=== PATIENT | male | born 1975 | race Caucasian/White ===

== ENCOUNTER 2017-02-02 08:07 | Emergency (ER) | payer OTHER ==
[~2017-02-02] VITALS: Ht 190.5 cm; Wt 113.0 kg
[2017-02-02] MEDS ORDERED: FAMOTIDINE 20 MG/2 ML ONE (08:46)
[2017-02-02] MEDS ORDERED: METOCLOPRAMIDE 5 MG/ML, 2ML ONE (08:46)
[2017-02-02] MEDS ORDERED: MAALOX/HYOSCYAMINE/LIDOCAINE 45 ML BTL ONE (08:46)
[2017-02-02] MEDS ORDERED: SODIUM CHLORIDE FLUSH 10ML SYR IVF ONE (09:00)
[2017-02-02] MEDS ORDERED: SODIUM CHLORIDE 0.9% 1,000ML IVBOLUS ONE (09:00)
[2017-02-02] MEDS ORDERED: MAALOX/HYOSCYAMINE/LIDOCAINE 45 ML BTL PO ONE (09:00)
[2017-02-02] MEDS ORDERED: METOCLOPRAMIDE 5 MG/ML, 2ML IVPush ONE (09:00)
[2017-02-02] MEDS ORDERED: FAMOTIDINE 20 MG/2 ML IVP ONE (09:00)
[2017-02-02 09:03] LABS: ASPARTATE AMINO TRANSFERASE 41 U/L (15-37); BLOOD UREA NITROGEN 6 mg/dL (7-18)
[2017-02-02 09:30] LABS: HEMOGLOBIN 16.2 g/dL (13.7-18.0); WHITE BLOOD COUNT 6.8 x10^3/uL (3.4-10)
[2017-02-02 10:11] VITALS: BP 137/92
== END 2017-02-02 10:47 | disposition home or self-care (01) ==
LOC: ED 10:21
DX: K29.00 Acute gastritis without bleeding (principal); A09 Infectious gastroenteritis and colitis, unspecified; E11.9 Type 2 diabetes mellitus without complications; E78.5 Hyperlipidemia, unspecified; I10 Essential (primary) hypertension
CPT/HCPCS: 36415; 74020; 80053; 81003; 83690; 85025; 86677; 93005; 96361; 96374; 96375; 99285; J2765; J7030; S0028

== ENCOUNTER 2017-02-28 15:47 | Observation (INO) | payer BC, OTHER ==
[~2017-02-28] VITALS: Ht 190.5 cm; Wt 101.7 kg
[2017-02-28] MEDS ORDERED: METO25TA91 PO (18:26)
[2017-02-28] MEDS ORDERED: GABA300C10 PO (18:26)
[2017-02-28] MEDS ORDERED: TRAZ100T15 PO (18:26)
[2017-02-28] MEDS ORDERED: VENL37.52 PO (18:26)
[2017-02-28] MEDS ORDERED: LISI40TA PO (18:26)
[2017-02-28] MEDS ORDERED: METF500T4 PO (18:26)
[2017-02-28] MEDS ORDERED: RISP0.5T24 PO (18:26)
[2017-02-28 18:59] LABS: BASOPHILS # (AUTO) 0.02 x10^3/uL (0-0.1); BASOPHILS % (AUTO) 0 % (0-1); EOSINOPHILS # (AUTO) 0.06 x10^3/uL (0-0.4); EOSINOPHILS % (AUTO) 1 % (1-7); LYMPHOCYTES # (AUTO) 1.02 x10^3/uL (1-3.4); LYMPHOCYTES % (AUTO) 13 % (22-44); MD NO; MEAN CORPUSCULAR HGB CONC 33.2 g/dL (33.2-36.2); MEAN CORPUSCULAR VOLUME 90.4 fL (81-97); MEAN PLATELET VOLUME 10.3 fL (7.4-10.4); MONOCYTES # (AUTO) 0.36 x10^3/uL (0.2-0.8); MONOCYTES % (AUTO) 5 % (2-9); NEUTROPHILS # (AUTO) 6.45 x10^3/uL (1.8-6.8); NEUTROPHILS % (AUTO) 82 % (42-75); PLATELET COUNT 245 x10^3/uL (130-400); RED BLOOD COUNT 4.85 x10^6/uL (4.38-5.82); RED CELL DISTRIBUTION WIDTH 13.9 % (9.4-14.8)
[2017-02-28 19:10] LABS: ALBUMIN 4.3 g/dL (3.4-5.0); ANION GAP 6 mmol/L (5-15); CALCIUM 9.2 mg/dL (8.5-10.1); CHLORIDE 108 mmol/L (98-107); CREATININE 1.17 mg/dL (0.7-1.3)
[2017-02-28 19:11] LABS: ACETAMINOPHEN < 2 mcg/mL (10-30); SALICYLATE LEVEL < 1.7 mg/dL (2.8-20.0)
[2017-02-28] MEDS ORDERED: ONDANSETRON ODT 4 MG PO PRN (19:30)
[2017-02-28] MEDS ORDERED: ACETAMINOPHEN 325 MG TABLET PO PRN (19:30)
[2017-02-28] MEDS ORDERED: BISACODYL 10 MG SUPP PR PRN (19:30)
[2017-02-28] MEDS ORDERED: POLYETHYLENE GLYCOL 17 GM PACKET PO PRN (19:30)
[2017-02-28 20:03] LABS: AMPHETAMINE SCREEN, URINE Negative (Negative); BARBITURATE SCREEN, URINE Negative (Negative); BENZODIAZEPINE SCREEN, URINE Negative (Negative); CANNABINOID SCREEN, URINE Positive (Negative); COCAINE SCREEN, URINE Negative (Negative); METHADONE SCREEN, URINE Negative (Negative); OPIATE SCREEN, URINE Negative (Negative)
[2017-02-28] MEDS: GABAPENTIN 300 MG CAPSULE PO SCH (20:57)
[2017-02-28] MEDS: TRAZODONE 100MG TABLET PO SCH (20:57)
[2017-02-28] MEDS: RISPERIDONE 0.5 MG TABLET PO SCH (20:57)
[2017-02-28] MEDS: metFORMIN 500 MG TABLET PO SCH (20:57)
[2017-02-28] MEDS: VENLAFAXINE XR 37.5MG CAP.ER.24H PO SCH (21:48)
[2017-03-01] MEDS ORDERED: LISINOPRIL 20 MG TABLET ONE ×2 (08:19→08:27)
[2017-03-01] MEDS ORDERED: SENNA/DOCUSATE TABLET ONE ×2 (08:20→08:33)
[2017-03-01] MEDS: GABAPENTIN 300 MG CAPSULE PO SCH ×2 (08:25→16:00)
[2017-03-01] MEDS: RISPERIDONE 0.5 MG TABLET PO SCH ×2 (08:25→20:37)
[2017-03-01] MEDS: metFORMIN 500 MG TABLET PO SCH ×2 (08:25→20:37)
[2017-03-01] MEDS: VENLAFAXINE XR 37.5MG CAP.ER.24H PO SCH ×2 (08:26→16:00)
[2017-03-01] MEDS: SENNA/DOCUSATE TABLET PO SCH (08:26)
[2017-03-01] MEDS: LISINOPRIL 20 MG TABLET PO SCH (08:26)
[2017-03-01] MEDS ORDERED: METOPROLOL SUCCINATE 25 MG TAB.ER.24H PO SCH (09:00)
[2017-03-01] MEDS ORDERED: LORazepam 1MG TABLET ONE (20:33)
[2017-03-01] MEDS: TRAZODONE 100MG TABLET PO SCH (20:37)
[2017-03-01] MEDS: LORazepam 1MG TABLET PO PRN (20:38)
[2017-03-02] MEDS ORDERED: LISINOPRIL 20 MG TABLET ONE (07:55)
[2017-03-02] MEDS ORDERED: SENNA/DOCUSATE TABLET ONE (07:55)
[2017-03-02] MEDS: GABAPENTIN 300 MG CAPSULE PO SCH ×4 (08:25→20:17)
[2017-03-02] MEDS: RISPERIDONE 0.5 MG TABLET PO SCH ×2 (08:26→20:16)
[2017-03-02] MEDS: LISINOPRIL 20 MG TABLET PO SCH (08:26)
[2017-03-02] MEDS: metFORMIN 500 MG TABLET PO SCH ×2 (08:26→20:17)
[2017-03-02] MEDS: SENNA/DOCUSATE TABLET PO SCH (08:26)
[2017-03-02] MEDS ORDERED: LORazepam 1MG TABLET ONE (08:32)
[2017-03-02] MEDS: LORazepam 1MG TABLET PO PRN (08:37)
[2017-03-02] MEDS: VENLAFAXINE XR 37.5MG CAP.ER.24H PO SCH ×3 (09:00→20:17)
[2017-03-02] MEDS: METOPROLOL SUCCINATE 50 MG TAB.ER.24H PO SCH (09:06)
[2017-03-02 13:31] VITALS: BP 128/86
[2017-03-02 19:21] VITALS: BP 129/85
[2017-03-02] MEDS: TRAZODONE 100MG TABLET PO SCH (20:17)
[2017-03-03 04:17] VITALS: BP 126/86
[2017-03-03] MEDS: LORazepam 1MG TABLET PO PRN (04:18)
[2017-03-03 07:52] VITALS: BP 121/84
[2017-03-03] MEDS: GABAPENTIN 300 MG CAPSULE PO SCH (09:04)
[2017-03-03] MEDS: VENLAFAXINE XR 37.5MG CAP.ER.24H PO SCH (09:04)
[2017-03-03] MEDS: SENNA/DOCUSATE TABLET PO SCH (09:04)
[2017-03-03] MEDS: metFORMIN 500 MG TABLET PO SCH (09:04)
[2017-03-03] MEDS: RISPERIDONE 0.5 MG TABLET PO SCH (09:04)
[2017-03-03] MEDS: LISINOPRIL 20 MG TABLET PO SCH (09:04)
[2017-03-03] MEDS: METOPROLOL SUCCINATE 50 MG TAB.ER.24H PO SCH (09:07)
== END 2017-03-03 14:37 ==
LOC: ED 17:21 → EDIP 18:43 → INTOOBSV 18:43 → 2N 03-02 12:20
PROVIDERS: ADMIT Surgery; ATTEND Surgery
DX: R45.851 Suicidal ideations (principal); F32.9 Major depressive disorder, single episode, unspecified; F41.0 Panic disorder [episodic paroxysmal anxiety]; E11.9 Type 2 diabetes mellitus without complications; I10 Essential (primary) hypertension; F12.90 Cannabis use, unspecified, uncomplicated; E78.5 Hyperlipidemia, unspecified; N62 Hypertrophy of breast
CPT/HCPCS: 36415; 80048; 80307; 80329; 82040; 84402; 84403; 85025; 99285; G0378; G0479; G0480